=== PATIENT | female | born 1985 | race Hispanic/Latino ===

== ENCOUNTER 2018-12-29 10:31 | Outpatient (CLI) | payer MEDICAID, OTHER ==
--- NOTE | 2018-12-29 11:59 | ULT ---
EXAM: US OB Complete STANDARD PROVIDED CLINICAL HISTORY: Patient with intrauterine gestation. Evaluate anatomy. COMPARISON: None available. FINDINGS: There is a single intrauterine gestation in variable presentation. Cardiac Doppler demonstrates heart tones with a heart rate of 136 bpm. The placenta is located posteriorly and is low lying. Cervical length measures approximately 6.8 cm based on transabdominal imaging. Subjectively, t here is a normal amount of amniotic fluid. biometry measurements: Biparietal diameter 5.12 cm, 21 weeks 4 days Head circumference 17.98 cm, 20 weeks 3 days Abdominal circumference 15.43 cm, 20 weeks 4 days Femur length 3.4 cm, 20 weeks 5 days Estimated gestational age by ultrasound is 20 weeks and 4 days with an KEVIN on 05/14/2019. Gestational age by last menstrual period is also 20 weeks and 4 days. The estimated weight by ultrasound is 368 g (13 ounces). This represents 50th percentile for fe dariusz weight. The visualized portions of the spine and cerebellum, four-chamber heart, stomach, and urinary b ladder demonstrate a normal sonographic appearance. Cord insertion is visualized and normal appearance. A definite 3 vessel cord is not delineated on this exam. Kidneys are also not well seen. However, in the expected location of the kidneys, there are no findings to suggest hydronephrosis. No definite anomalies are seen. Within the anterior aspect of the uterus, there is a 3.3 cm hypoechoic mass likely related to a uteri ne fibroid. IMPRESSION: 1. Low-lying placenta. Follow-up evaluation in 4-6 weeks is recommended. 2. Single intrauterine gestation in variable presentation with heart tones documented. The barbara mated gestational age by ultrasound is 20 weeks and 4 days with KEVIN of 05/14/2019. 3. Estimated weight is 368 g (13 ounces). 4. Uterine fibroid in the anterior uterus.
== END 2018-12-29 10:32 | disposition home or self-care (01) ==
LOC: ULT 10:31
PROVIDERS: ATTEND Family Medicine
DX: O09.892 Supervision of other high risk pregnancies, second trimester (principal); O44.42 Low lying placenta NOS or without hemorrhage, second trimester; O34.12 Maternal care for benign tumor of corpus uteri, second trimester; Z3A.20 20 weeks gestation of pregnancy
CPT/HCPCS: 76805